=== PATIENT | male | born 2000 | race Caucasian/White ===

== ENCOUNTER 2023-05-19 17:09 | Emergency (ER) | payer OTHER ==
[~2023-05-19] VITALS: Ht 182.9 cm; Wt 92.9 kg
[~2023-05-19 17:09] MED LIST: CYCL5TAB PO; IBUP-1720 PO; PANT40TA29 PO
[2023-05-19 18:06] LABS: BLOOD UREA NITROGEN 18 MG/DL (9-23); CALCIUM LEVEL 8.9 MG/DL (8.5-10.1); CARBON DIOXIDE LEVEL 28 MMOL/L (20-31); CHLORIDE LEVEL 105 MMOL/L (98-107); CREATININE FOR GFR 1.13 MG/DL (0.70-1.30); GLOMERULAR FILTRATION RATE > 60.0 (>60); GLUCOSE, FASTING 83 MG/DL (60-100); POTASSIUM SERUM 4.1 MMOL/L (3.5-5.1); SODIUM LEVEL 141 MMOL/L (136-145)
[2023-05-19 18:13] LABS: BASO # 0.1 10^3/uL (0.0-0.2); BASO % 0.9 % (0.0-1.0); EOS # 0.4 10^3/uL (0.0-0.5); EOS % 3.8 % (0.0-3.0); HEMATOCRIT 43.3 % (42.0-52.0); HEMOGLOBIN 15.3 g/dl (13.5-17.5); LYMPH # 1.5 10^3/uL (1.5-5.0); LYMPH % 15.2 % (24.0-44.0); MEAN CORPUSCULAR HEMOGLOBIN 32.3 pg (27.0-33.0); MEAN CORPUSCULAR HGB CONC 35.3 g/dl (32.0-36.5); MEAN CORPUSCULAR VOLUME 91.4 fl (80.0-96.0); MONO # 0.9 10^3/uL (0.0-0.8); MONO % 9.5 % (2.0-8.0); NEUTROPHILS # 6.7 10^3/uL (1.5-8.5); NEUTROPHILS % 70.2 % (36.0-66.0); PLATELET COUNT, AUTOMATED 219 10^3/uL (150-450); RED BLOOD COUNT 4.74 10^6/uL (4.30-6.10); WHITE BLOOD COUNT 9.5 10^3/uL (4.0-10.0)
[2023-05-19] MEDS ORDERED: CETIRIZINE (ZyrTEC) 10 MG TAB PO ONE (22:10)
[2023-05-19] MEDS ORDERED: BENZONATATE 100MG CAPSULE PO ONE (22:10)
[2023-05-19] MEDS ORDERED: AMOXICILLIN 500 MG CAP PO ONE (22:10)
[2023-05-19] MEDS ORDERED: AMOX500C PO (22:21)
[2023-05-19] MEDS ORDERED: BENZ200C70 PO (22:21)
[2023-05-19] MEDS ORDERED: FLON1SPR NARES (22:21)
[2023-05-19] MEDS ORDERED: ALBU8.5H INH (22:21)
[2023-05-19] MEDS ORDERED: CETI10CH PO (22:22)
[2023-05-19 22:32] VITALS: BP 167/90; TEMP 99.4; O2SAT 100
== END 2023-05-19 22:39 | disposition home or self-care (01) ==
LOC: M ED 17:09
DX: J02.0 Streptococcal pharyngitis (principal); R09.81 Nasal congestion; I10 Essential (primary) hypertension; K21.9 Gastro-esophageal reflux disease without esophagitis; M54.50 Low back pain, unspecified; Z79.52 Long term (current) use of systemic steroids; Z79.2 Long term (current) use of antibiotics; Z79.899 Other long term (current) drug therapy